=== PATIENT | female | born 1980 | race African-American/Black ===

== ENCOUNTER 2017-02-21 18:25 | Emergency (ER) | payer SELFPAY ==
[2017-02-21 18:31] VITALS: BP 129/76; PULSE 87; TEMP 98.5; BMI 25.8
--- NOTE | 2017-02-21 19:17 | PDOC ---
History of Present Illness - General Chief Complaint: Diarrhea Stated Complaint: PAIN, ACUTE Time Seen by Provider: 02/21/17 19:12 History Source: Patient Exam Limitations: No Limitations - History of Present Illness Travel History: No Initial Comments: 02/21/17 22:52 36-year-old female with no medical history presents to the emergency department complaining of constant burping/acid taste in her mouth after she burps and nonbloody/nonbilious diarrhea 2 days after having dinner at [employer]. Patient states she resides at [facility] came here on vacation. Patient denies any fever, chills, nausea/vomiting, chest pain, shortness of breath, abdominal pains, urinary symptoms or flank pains. Patient states she took one tablet of Imodium 20 minutes prior to her arrival. Patient's boyfriend ate at [employer] with her 2 days ago and has similar symptoms/diarrhea which subsided 2 hours ago. Timing/Duration: reports: intermittent Past History - Past Medical History Allergies/Adverse Reactions: Allergies Allergy/AdvReac Type Severity Reaction Status Date / Time No Known Allergies Allergy Verified 02/21/17 18:31 Home Medications: Ambulatory Orders Ciprofloxacin HCl [Cipro] 500 mg PO BID #10 tablet 02/21/17 Other medical history: denies - Reproductive History (#): 2 Para: 0 Ectopic : Yes (1) Therapeutic (s) & number: Yes (1) Spontaneous : 1 - Psycho/Social/Smoking Cessation Hx Suicidal Ideation: No Smoking History: Never smoked Hx Alcohol Use: Yes Substance Use Type: Alcohol Review of Systems - Review of Systems Able to Perform ROS?: Yes Comments:: 02/21/17 23:52 CONSTITUTIONAL: Absent: fever, chills, diaphoresis, generalized weakness, malaise, loss of appetite HEENT: Absent: rhinorrhea, nasal congestion, throat pain, throat swelling, difficulty swallowing, mouth swelling, ear pain, eye pain, visual Changes CARDIOVASCULAR: Absent: chest pain, loss of consciousness, palpitations, irregular heart rate, peripheral edema RESPIRATORY: Absent: cough, shortness of breath, dyspnea with exertion, orthopnea, wheezing, stridor, hemoptysis GASTROINTESTINAL: +diarrhea/ "burping/acid taste in mouth" Absent: abdominal pain, abdominal distension, nausea, vomiting, constipation, melena, hematochezia GENITOURINARY: Absent: dysuria, frequency, urgency, hesitancy, hematuria, flank pain, genital pain MUSCULOSKELETAL: Absent: myalgia, arthralgia, joint swelling SKIN: Absent: rash, itching, pallor HEMATOLOGIC/IMMUNOLOGIC: Absent: easy bleeding, easy bruising, lymphadenopathy, frequent infections ENDOCRINE: Absent: unexplained weight gain, unexplained weight loss, heat intolerance, cold intolerance Is the patient limited Turkish proficient: No *Physical Exam - Vital Signs Last Vital Signs Temp Pulse Resp BP Pulse Ox 98.5 F 87 18 129/76 100 02/21/17 18:29 02/21/17 18:29 02/21/17 18:29 02/21/17 18:29 02/21/17 18:29 - Physical Exam Comments: 02/21/17 23:52 GENERAL: Well developed, well nourished. Awake and alert. No acute distress. HEENT: Normocephalic, atraumatic. PERRLA, EOMI. No conjunctival pallor. Sclera are non- icteric. Moist mucous membranes. Oropharynx is clear. NECK: Supple. Full ROM. No JVD. Carotid pulses 2+ and symmetric, without bruits. No thyromegaly. No lymphadenopathy. CARDIOVASCULAR: Regular rate and rhythm. No murmurs, rubs, or gallops. Distal pulses are 2+ and symmetric. PULMONARY: No evidence of respiratory distress. Lungs clear to auscultation bilaterally. No wheezing, rales or rhonchi. ABDOMINAL: Soft. Non-tender. Non-distended. No rebound or guarding. No organomegaly. Normoactive bowel sounds. MUSCULOSKELETAL Normal range of motion at all joints. No bony deformities or tenderness. No CVA tenderness. EXTREMITIES: No cyanosis. No clubbing. No edema. No calf tenderness. SKIN: Warm and dry. Normal capillary refill. No rashes. No jaundice. NEUROLOGICAL: Alert, awake, appropriate. Cranial nerves 2-12 intact. No deficits to light touch and temperature in face, upper extremities and lower extremities. No motor deficits in the in face, upper extremities and lower extremities. Normoreflexic in the upper and lower extremities. Normal speech. Toes are down- going bilaterally. Gait is normal without ataxia. PSYCHIATRIC: Cooperative. Good eye contact. Appropriate mood and affect. ED Treatment Course - LABORATORY CBC & Chemistry Diagram: 02/21/17 19:22 02/21/17 19:22 *DC/Admit/Observation/Transfer Diagnosis at time of Disposition: Diarrhea Qualifiers: Diarrhea type: unspecified type Qualified Code(s): R19.7 - Diarrhea, unspecified GERD (gastroesophageal reflux disease) Qualifiers: Esophagitis presence: without esophagitis Qualified Code(s): K21.9 - Gastro- esophageal reflux disease without esophagitis - Discharge Dispostion Disposition: HOME Condition at time of disposition: Stable Admit: No - Prescriptions Prescriptions: Ciprofloxacin HCl [Cipro] 500 mg PO BID #10 tablet - Referrals Referrals: Braydon Luke DO [Staff Physician] - - Patient Instructions Printed Discharge Instructions: DI for Gastroesophageal Reflux Disease (GERD), Diarrhea Additional Instructions: Follow up with the sagger maker/Dr. Luke Take either: Pepcid 20mg daily twice a day or Nexium daily Increase fluids Liquid diet x12 hours with slow transition to reg diet Return to the ER for severe/persistent/worsening symptoms
[2017-02-21] MEDS ORDERED: SODIUM CHLORIDE 1,000 ML IV STA (19:18)
--- NOTE | 2017-02-21 19:38 | PDOC ---
*Physical Exam - Vital Signs Last Vital Signs Temp Pulse Resp BP Pulse Ox 98.5 F 87 18 129/76 100 02/21/17 18:29 02/21/17 18:29 02/21/17 18:29 02/21/17 18:29 02/21/17 18:29 ED Treatment Course - LABORATORY CBC & Chemistry Diagram: 02/21/17 19:22 02/21/17 19:22 Medical Decision Making - Medical Decision Making 02/21/17 19:38 36 yo F presenting to the ER s/p return from international travel (+) abdominal pain and diarrhea Pt seen by Midlevel Provider under my direct supervision Pt interviewed and examined Ancillary studies reviewed I agree with plan as outlined by Midlevel Provider 02/21/17 19:41 02/21/17 20:31 Laboratory Tests 09/03/14 02/21/17 02/21/17 09:30 19:22 19:22 WBC 4.6 6.1 D Hgb 11.7 9.4 L D Hct 34.3 29.3 L Plt Count 209 D 296 D BUN 14 Creatinine 1.5 H Total Amylase 125 H Lipase 448 H *DC/Admit/Observation/Transfer Diagnosis at time of Disposition: Diarrhea, GERD (gastroesophageal reflux disease) - Discharge Dispostion Disposition: HOME Condition at time of disposition: Stable - Prescriptions Prescriptions: Ciprofloxacin HCl [Cipro] 500 mg PO BID #10 tablet - Referrals Referrals: Braydon Luke DO [Staff Physician] - - Patient Instructions Printed Discharge Instructions: Diarrhea, DI for Gastroesophageal Reflux Disease (GERD) Additional Instructions: Follow up with the inner layer scrubber tender/Dr. Luke Take either: Pepcid 20mg daily twice a day or Nexium daily Increase fluids Liquid diet x12 hours with slow transition to reg diet Return to the ER for severe/persistent/worsening symptoms
[2017-02-21 19:50] LABS: BASOPHIL 0.5 % (0-2.0); EOSINOPHIL 3.7 % (0-4.5); MCH 25.1 pg (25.7-33.7); MCHC 31.9 g/dl (32.0-36.0); MEAN CELL VOLUME 78.6 fl (80-96); MEAN PLT VOLUME 8.3 fl (7.5-11.1); NEUTROPHILS 63.2 % (42.8-82.8); PLATELET COUNT 296 K/MM3 (134-434); RDW 16.1 % (11.6-15.6); WHITE BLOOD COUNT 6.1 K/mm3 (4.0-10.0)
[2017-02-21 20:22] LABS: ALBUMIN 3.8 g/dl (3.4-5.0); ALK PHOS 68 U/L (45-117); AMYLASE 125 U/L (25-115); ANION GAP 9 (8-16); BILIRUBIN,TOTAL 0.3 mg/dL (0.2-1.0); CALCIUM 8.8 mg/dL (8.5-10.1); CO2 24 mmol/L (21-32); CREATININE 1.5 mg/dL (0.55-1.02); GLUCOSE,RANDOM 92 mg/dL (74-106); SGOT/AST 13 U/L (15-37); SGPT/ALT 18 U/L (12-78); TOT PROT 7.9 g/dl (6.4-8.2)
[2017-02-21 20:28] LABS: URINE APPEARANCE CLEAR; URINE BILIRUBIN NEGATIVE (NEGATIVE); URINE BLOOD 2+ (NEGATIVE); URINE COLOR STRAW; URINE GLUCOSE (UA) NEGATIVE (NEGATIVE); URINE KETONE NEGATIVE (NEGATIVE); URINE LEUK ESTERASE TRACE (NEGATIVE); URINE NITRITE NEGATIVE (NEGATIVE); URINE PROTEIN NEGATIVE (NEGATIVE); URINE UROBILINOGEN NEGATIVE mg/dL (0.2-1.0)
[2017-02-21] MEDS ORDERED: MAG HYDROX/AL HYDROX/SIMETH 30 ML UNIT-DOSE CUP PO ONE (20:39)
[2017-02-21] MEDS ORDERED: FAMOTIDINE 20 MG/50 ML IVPB 50 ML IVPB ONE ×2 (20:39→20:55)
[2017-02-21 20:40] LABS: URINE MUCUS RARE; URINE RBC <1 /hpf (0-3); URINE WBC 2 /hpf (3-5)
[2017-02-21] MEDS ORDERED: MAG HYDROX/AL HYDROX/SIMETH 30 ML UNIT-DOSE CUP ONE (20:55)
[2017-02-22] MEDS ORDERED: LEVOFLOXACIN 750 MG TABLET PO SCH (10:00)
== END 2017-02-21 23:08 | disposition home or self-care (01) ==
LOC: JER 18:25
PROC: 3E0337Z Introduction of Electrolytic and Water Balance Substance into Peripheral Vein, Percutaneous Approach (ICD-10-PCS; principal; 2017-02-21)
PROC: 3E033GC Introduction of Other Therapeutic Substance into Peripheral Vein, Percutaneous Approach (ICD-10-PCS; 2017-02-21)
DX: K21.9 Gastro-esophageal reflux disease without esophagitis (principal); R19.7 Diarrhea, unspecified
CPT/HCPCS: 36415; 80053; 81003; 81015; 82150; 83690; 85025; 99282-25

== ENCOUNTER 2017-06-28 23:42 | Emergency (ER) | payer OTHER ==
[2017-06-29 00:13] VITALS: BP 138/93; PULSE 84; TEMP 98.6; BMI 25.7
--- NOTE | 2017-06-29 01:09 | PDOC ---
History of Present Illness - History of Present Illness Initial Comments: 06/29/17 01:36 The patient is a 37 year old female, with a significant past medical history of DNC (2016), heavy menstrual periods, who presents to the emergency department with vaginal bleeding for 10 days. Patient is visiting from [facility]. She states that she began experiencing cramping and heavy bleeding for 10 days. She states she has a DNC in 2016 for heavy bleeding done elsewhere. Her LMP before today was 05/15/17 which also lasted abnormally long. She states she was hospitalized for 6 days in [facility] and became anemic and received a blood transfusion. She states she has been taking Midol for the pain. She states she has gone through 10 pads today. She denies recent fevers, chills, headache or dizziness. She denies recent nausea, vomit, diarrhea or constipation. She denies recent dysuria, frequency, urgency or hematuria. She denies recent chest pain or shortness of breath. Allergies: NKA <Luciana Maldonado - Last Filed: 06/29/17 01:36> <Aruna Maher - Last Filed: 06/29/17 02:23> - General Chief Complaint: Vaginal Bleeding Stated Complaint: VAGINAL BLEEDING Time Seen by Provider: 06/29/17 00:31 Past History <Luciana Maldonado - Last Filed: 06/29/17 01:36> - Reproductive History (#): 2 Para: 0 Ectopic : Yes (1) Therapeutic (s) & number: Yes (1) Spontaneous : 1 - Suicide/Smoking/Psychosocial Hx Smoking History: Never smoked Have you smoked in the past 12 months: No Information on smoking cessation initiated: No Hx Alcohol Use: No Drug/Substance Use Hx: No Substance Use Type: Alcohol <Aruna Maher - Last Filed: 06/29/17 02:23> - Past Medical History Allergies/Adverse Reactions: Allergies Allergy/AdvReac Type Severity Reaction Status Date / Time No Known Allergies Allergy Verified 02/21/17 18:31 Home Medications: Ambulatory Orders Ciprofloxacin HCl [Cipro] 500 mg PO BID #10 tablet 02/21/17 Review of Systems - Review of Systems Comments:: 06/29/17 01:36 CONSTITUTIONAL: Absent: fever, no chills, no fatigue EYES: Absent: visual changes ENT: Absent: ear pain, no sore throat CARDIOVASCULAR: Absent: chest pain, no palpitations RESPIRATORY: Absent: cough, no SOB GI: Absent: abdominal pain, no nausea, no vomiting, no constipation, no diarrhea GENITOURINARY: Absent: dysuria, no frequency, no hematuria MARKETING INFORMATION COORDINATOR: Present: vaginal bleeding and cramping MUSCULOSKELETAL: Absent: back pain, no arthralgia, no myalgia SKIN: Absent: rash NEURO: Absent: headache <Luciana Maldonado - Last Filed: 06/29/17 01:36> *Physical Exam - Vital Signs Last Vital Signs Temp Pulse Resp BP Pulse Ox 98.6 F 84 20 138/93 98 06/29/17 00:02 06/29/17 00:02 06/29/17 00:02 06/29/17 00:02 06/29/17 00:02 - Physical Exam Comments: 06/29/17 01:38 GENERAL: Well-appearing, well-nourished. No apparent distress. HEENT: Normocephalic, atraumatic. PERRL, EOM intact. CARDIOVASCULAR: Normal S1, S2. Regular rate and rhythm. PULMONARY: Clear to auscultation bilaterally. ABDOMEN: Soft, non-distended, non-tender. EXTREMITIES: Normal ROM in all four extremities. No gross deformities. SKIN: Warm, dry. No rash NEUROLOGICAL: No focal neurological deficits. <Luciana Maldonado - Last Filed: 06/29/17 01:36> - Vital Signs Last Vital Signs Temp Pulse Resp BP Pulse Ox 98.6 F 84 20 138/93 98 06/29/17 00:02 06/29/17 00:02 06/29/17 00:02 06/29/17 00:02 06/29/17 00:02 <Aruna Maher - Last Filed: 06/29/17 02:23> ED Treatment Course - LABORATORY CBC & Chemistry Diagram: 06/29/17 01:32 <Luciana Maldonado - Last Filed: 06/29/17 01:36> - LABORATORY CBC & Chemistry Diagram: 06/29/17 01:32 <Aruna Mahre - Last Filed: 06/29/17 02:23> *DC/Admit/Observation/Transfer - Attestations Scribe Attestion: 06/29/17 01:39 Documentation prepared by Luciana Maldonado, acting as medical coding auditor for Aruna Maher MD. <Luciana Maldonado - Last Filed: 06/29/17 01:36> <Aruna Maher - Last Filed: 06/29/17 02:23> Diagnosis at time of Disposition: Menses painful - Discharge Dispostion Disposition: HOME Condition at time of disposition: Stable - Referrals Referrals: Gumaro Brooks MD [Staff Physician] - Evan Patricia MD [Staff Physician] - Grazyna Nuno DO [Staff Physician] - - Patient Instructions Printed Discharge Instructions: DI for Menorrhagia Additional Instructions: please take motrin for cramping pain Please followup with manager terminal
[2017-06-29 01:38] LABS: BASO % 1.4 % (0-2.0); EOS % 3.5 % (0-4.5); HEMATOCRIT 30.7 % (32.4-45.2); HEMOGLOBIN 9.9 GM/dL (10.7-15.3); LYMPH % 38.1 % (8-40); MCH 29.5 pg (25.7-33.7); MCHC 32.4 g/dl (32.0-36.0); MEAN PLT VOLUME 8.4 fl (7.5-11.1); MONO % 4.9 % (3.8-10.2); NEUT % 52.1 % (42.8-82.8); PLATELET COUNT 240 K/MM3 (134-434); RBC 3.37 M/mm3 (3.60-5.2); RDW 14.4 % (11.6-15.6); WHITE BLOOD COUNT 5.9 K/mm3 (4.0-10.0)
[2017-06-29] MEDS ORDERED: IBUPROFEN 600 MG TABLET (FP) PO ONE ×2 (01:53→02:39)
== END 2017-06-29 02:41 | disposition home or self-care (01) ==
LOC: JER 23:42
DX: N92.0 Excessive and frequent menstruation with regular cycle (principal); N94.6 Dysmenorrhea, unspecified
CPT/HCPCS: 36415; 84703; 85025; 86850; 86900; 86901; 99281-25

== ENCOUNTER 2017-06-30 13:13 | Day surgery (SDC) | payer OTHER ==
[2017-06-30 13:18] VITALS: BMI 26.8
--- NOTE | 2017-06-30 13:22 | PDOC ---
History of Present Illness <Emliie Lieberman - Last Filed: 06/30/17 16:19> - General History Source: Patient Exam Limitations: No Limitations - History of Present Illness Initial Comments: 06/30/17 17:55 Patient is a 37 year old female with a significant past medical history of DNC ( 2016), Fibroids, heavy menstrual periods who presents to the ED from OB office with complaints of heavy vaginal bleeding. Patient reports experiencing heavy vaginal bleeding for the last 10 days. She reports coming into the [place] ED yesterday for the same complaint and was discharged to follow up with ADJUNCT TRAINER. Patient was advised by Dr. Israel to come into the ED for admission to the OR for heavy vaginal bleeding. Patient currently has no other complaints while in the ED. Denies Chest pain, SOB. Denies nausea, vomiting. Denies fevers, chills. Denies contact with sick individuals, out of state travelling. Denies any other symptoms. Allergies: None Social history: No smoking. No alcohol. No illicit drugs. Surgical history: None PMD: None <Akshat Colindres - Last Filed: 06/30/17 17:56> - General Chief Complaint: Vaginal Bleeding Stated Complaint: VAGINAL BLEEDING Time Seen by Provider: 06/30/17 13:22 Past History - Past Medical History COPD: No - Reproductive History (#): 2 Para: 0 Ectopic : Yes (1) Therapeutic (s) & number: Yes (1) Spontaneous : 1 - Suicide/Smoking/Psychosocial Hx Smoking History: Never smoked Have you smoked in the past 12 months: No Information on smoking cessation initiated: No Hx Alcohol Use: No Drug/Substance Use Hx: No Substance Use Type: Alcohol <Emilie Lieberman - Last Filed: 06/30/17 16:19> <Akshat Colindres - Last Filed: 06/30/17 17:56> - Past Medical History Allergies/Adverse Reactions: Allergies Allergy/AdvReac Type Severity Reaction Status Date / Time No Known Allergies Allergy Verified 06/30/17 13:18 Home Medications: Ambulatory Orders NK [No Known Home Medication] 06/30/17 Review of Systems - Review of Systems Able to Perform ROS?: Yes Comments:: 06/30/17 17:55 GENERAL/CONSTITUTIONAL: No fever or chills. No weakness. HEAD, EYES, EARS, NOSE AND THROAT: No change in vision. No ear pain or discharge. No sore throat. GASTROINTESTINAL: No nausea, vomiting, diarrhea or constipation. GENITOURINARY: +Vagiinal bleeding No dysuria, frequency, or change in urination. CARDIOVASCULAR: No chest pain or shortness of breath. RESPIRATORY: No cough, wheezing, or hemoptysis. MUSCULOSKELETAL: No joint or muscle swelling or pain. No neck or back pain. SKIN: No rash NEUROLOGIC: No headache, vertigo, loss of consciousness, or change in strength/ sensation. ENDOCRINE: No increased thirst. No abnormal weight change. HEMATOLOGIC/LYMPHATIC: No anemia, easy bleeding, or history of blood clots. ALLERGIC/IMMUNOLOGIC: No hives or skin allergy. All Other Systems: Reviewed and Negative <Akshat Colindres - Last Filed: 06/30/17 17:56> *Physical Exam - Vital Signs Last Vital Signs Temp Pulse Resp BP Pulse Ox 99.8 F H 96 H 18 157/81 100 06/30/17 13:15 06/30/17 13:15 06/30/17 13:15 06/30/17 13:15 06/30/17 13:15 <Emilie Lieberman - Last Filed: 06/30/17 16:19> - Vital Signs Last Vital Signs Temp Pulse Resp BP Pulse Ox 98.4 F 69 16 113/69 98 06/30/17 16:16 06/30/17 16:16 06/30/17 16:16 06/30/17 16:16 06/30/17 16:16 - Physical Exam Comments: 06/30/17 17:55 GENERAL: Awake, alert, and fully oriented, in no acute distress HEAD: No signs of trauma EYES: PERRLA, EOMI, sclera anicteric, conjunctiva clear ENT: Auricles normal inspection, hearing grossly normal, nares patent, oropharynx clear without exudates. Moist mucosa NECK: Normal ROM, supple, no lymphadenopathy, JVD, or masses LUNGS: Breath sounds equal, clear to auscultation bilaterally. No wheezes, and no crackles HEART: Regular rate and rhythm, normal S1 and S2, no murmurs, rubs or gallops ABDOMEN: Soft, nontender, normoactive bowel sounds. No guarding, no rebound. No masses EXTREMITIES: Normal range of motion, no edema. No clubbing or cyanosis. No cords , erythema, or tenderness ADJUNCT TRAINER: no active vaginal bleeding, deferred bimanual/speculum exam as pt is going to OR NEUROLOGICAL: Normal speech, cranial nerves intact, negative pronator drift, 5/ 5 strength in all 4 extremities, normal sensation to light touch in all 4 extremities, normal cerebellar exam, normal gait, normal reflexes and tone SKIN: Warm, Dry, normal turgor, no rashes or lesions noted. <Akshat Colindres - Last Filed: 06/30/17 17:56> ED Treatment Course - LABORATORY CBC & Chemistry Diagram: 06/30/17 13:55 06/30/17 13:55 <Emilie Lieberman - Last Filed: 06/30/17 16:19> - LABORATORY CBC & Chemistry Diagram: 06/30/17 13:55 06/30/17 13:55 - ADDITIONAL ORDERS Additional order review: Laboratory Results 06/30/17 06/30/17 06/30/17 13:55 13:55 13:55 PTT (Actin FS) 25.8 L Sodium 143 Potassium 4.3 Chloride 113 H Carbon Dioxide 19 L D Anion Gap 11 BUN 15 Creatinine 1.1 H D Creat Clearance w eGFR 55.30 Random Glucose 86 Calcium 8.7 Total Bilirubin 0.2 D AST 15 ALT 16 Alkaline Phosphatase 56 Total Protein 7.0 Albumin 3.5 Beta HCG, Quant < 1.0 Urine Color Yellow Urine Appearance Cloudy Urine pH 5.0 Ur Specific Vest 1.016 Urine Protein 1+ H Urine Glucose (UA) Negative Urine Ketones Trace H Urine Blood 3+ H Urine Nitrite Positive Urine Bilirubin Negative Urine Urobilinogen Negative Ur Leukocyte Esterase 3+ H Urine WBC (Auto) 358 Urine RBC (Auto) 753 Ur Epithelial Cells Rare Urine Bacteria Many Urine Mucus Rare Urine HCG, Qual Blood Type 06/30/17 06/30/17 13:55 13:34 PTT (Actin FS) Sodium Potassium Chloride Carbon Dioxide Anion Gap BUN Creatinine Creat Clearance w eGFR Random Glucose Calcium Total Bilirubin AST ALT Alkaline Phosphatase Total Protein Albumin Beta HCG, Quant Urine Color Urine Appearance Urine pH Ur Specific Vest Urine Protein Urine Glucose (UA) Urine Ketones Urine Blood Urine Nitrite Urine Bilirubin Urine Urobilinogen Ur Leukocyte Esterase Urine WBC (Auto) Urine RBC (Auto) Ur Epithelial Cells Urine Bacteria Urine Mucus Urine HCG, Qual Negative Blood Type O POSITIVE 06/30/17 13:55 RBC 2.85 L MCV 91.8 MCHC 31.8 L RDW 14.6 MPV 8.5 Neutrophils % 67.1 D Lymphocytes % 25.8 D Monocytes % 3.8 Eosinophils % 2.3 Basophils % 1.0 - Medications Given in the ED: ED Medications Discontinued Medications Generic Name Dose Route Start Last Admin Trade Name Mario PRN Reason Stop Dose Admin Sodium Chloride 1,000 ml 06/30/17 13:38 06/30/17 14:08 Normal Saline - IV 06/30/17 13:39 1,000 ml ONCE ONE Administration <Akshat Colindres - Last Filed: 06/30/17 17:56> Medical Decision Making - Medical Decision Making 06/30/17 14:19 37-year-old female with a history of fibroids and DNC presents with heavy vaginal bleeding and is sent in for admission for dilation and curettage by OB. Will obtain preop labs and an ultrasound and admit the patient to Dr. Israel <Emilie Lieberman - Last Filed: 06/30/17 16:19> *DC/Admit/Observation/Transfer - Discharge Dispostion Admit: Yes - Attestations Physician Attestion: 06/30/17 16:21 I, Dr. Emilie Lieberman MD, attest that this document has been prepared under my direction and personally reviewed by me in its entirety. I further attest, that it accurately reflects all work, treatment, procedures and medical decision -making performed by me. <Emilie Lieberman - Last Filed: 06/30/17 16:19> - Attestations Scribe Attestion: 06/30/17 17:56 Documentation prepared by Akshat Colindres, acting as manager of medical for Emilie Lieberman MD, /DO. <Akshat Colindres - Last Filed: 06/30/17 17:56> Diagnosis at time of Disposition: Menorrhagia, Fibroid - Discharge Dispostion Condition at time of disposition: Stable
[2017-06-30] MEDS ORDERED: SODIUM CHLORIDE 0.9% 500 ML INFUS.BAG IV ONE (13:38)
[2017-06-30 14:22] LABS: EOS % 2.3 % (0-4.5); HEMATOCRIT 26.2 % (32.4-45.2); HEMOGLOBIN 8.3 GM/dL (10.7-15.3); LYMPH % 25.8 % (8-40); MCH 29.2 pg (25.7-33.7); MCHC 31.8 g/dl (32.0-36.0); MEAN CELL VOLUME 91.8 fl (80-96); MEAN PLT VOLUME 8.5 fl (7.5-11.1); MONO % 3.8 % (3.8-10.2); NEUT % 67.1 % (42.8-82.8); PLATELET COUNT 233 K/MM3 (134-434); RBC 2.85 M/mm3 (3.60-5.2); RDW 14.6 % (11.6-15.6); WHITE BLOOD COUNT 6.9 K/mm3 (4.0-10.0)
[2017-06-30 14:34] LABS: ALBUMIN 3.5 g/dl (3.4-5.0); ANION GAP 11 (8-16); BILIRUBIN,TOTAL 0.2 mg/dL (0.2-1.0); BLOOD UREA NITROGEN 15 mg/dL (7-18); CALCIUM 8.7 mg/dL (8.5-10.1); CHLORIDE 113 mmol/L (98-107); CO2 19 mmol/L (21-32); CREATININE 1.1 mg/dL (0.55-1.02); GLUCOSE,RANDOM 86 mg/dL (74-106); SGPT/ALT 16 U/L (12-78); SODIUM 143 mmol/L (136-145)
[2017-06-30 14:36] LABS: ALK PHOS 56 U/L (45-117)
[2017-06-30 14:38] LABS: POTASSIUM 4.3 mmol/L (3.5-5.1); SGOT/AST 15 U/L (15-37)
--- NOTE | 2017-06-30 14:38 | EKG ---
Test Reason : Blood Pressure : / mmHG Vent. Rate : 074 BPM Atrial Rate : 074 BPM P-R Int : 172 ms QRS Dur : 070 ms QT Int : 382 ms P-R-T Axes : 049 027 019 degrees QTc Int : 424 ms NORMAL SINUS RHYTHM NORMAL ECG NO PREVIOUS ECGS AVAILABLE Confirmed by Clyde Jones MD ([id number]) on 06/30/2017 2:38:03 PM Referred By: Confirmed By:Clyde Jones MD
[2017-06-30 14:41] LABS: URINE APPEARANCE CLOUDY; URINE BILIRUBIN NEGATIVE (NEGATIVE); URINE BLOOD 3+ (NEGATIVE); URINE COLOR YELLOW; URINE GLUCOSE (UA) NEGATIVE (NEGATIVE); URINE KETONE TRACE (NEGATIVE); URINE NITRITE POSITIVE (NEGATIVE); URINE UROBILINOGEN NEGATIVE mg/dL (0.2-1.0)
[2017-06-30 14:42] LABS: URINE LEUK ESTERASE 3+ (NEGATIVE); URINE PROTEIN 1+ (NEGATIVE)
[2017-06-30 14:52] LABS: EPI CELLS RARE /HPF (FEW); URINE BACTERIA MANY /hpf (NONE SEEN); URINE MUCUS RARE
[2017-06-30] MEDS ORDERED: MIDAZOLAM HCL 2 MG/2 ML SINGLE DOSE VIAL ONE (16:14)
[2017-06-30] MEDS ORDERED: PROPOFOL 20 ML ONE (16:15)
--- NOTE | 2017-06-30 17:33 | HP ---
Past Medical History - Primary Care Physician PCP:: Gracie Israel - Admission Chief Complaint: 37 yrs , 3ctopic 1 , c/o heavy vaginal bleeding accompanied by pain for 9-12days , admitted for emergency D&C History of Present Illness: pt us admitted from ER today songram was done today in ER reported as Leiomyoma uterus, multiple fibroid, fundal fibriid 1x2 cm, posterior fibroid in Lower uterine segment 3x2x5 cm approx with submucous extension, another post fibroid about 4 cm . patient also was seen in the Clinic in AM , bleeding profusely & c/o pain scale 10/10 she was in ER on 06/28/17 pregn test neg, h/9.9/30.7, plt 240 . pt states [place] country [place] she had heavy bleeding, she was severely anemic , she receieved 2 units of pack cells . she was told she has fibroids she has been bleeding heavy for past 4-5 months during period x10-12 days bleeding , changes 11 pads per day . before 4 months 28/30 day cycle, bleeding foe 4-5 days , changed 3-4 pads / day . No h/o contraception Last Pap in [facility] , in 2016 normal as per pt . no h/o abn pap she denies h/o STD contraception none History Source: Patient - Past Medical History MEDICAL BILLING SPECIALIST: Yes: Syncope. No: Migraine, Seizure Cardiovascular: Yes: HTN (h/o labile htn, she [place] meds [place] country, did not take the meds all the time . presently no meds). No: Murmur Pulmonary: No: Asthma Gastrointestinal: No: Constipation, GERD, GI Bleed Hepatobiliary: No: Cirrhosis Renal/: No: UTI Reproductive: Yes: Ectopic (2004, Left salpingectomy in her country [facility]). No: PID ...: 2 ...Para: 0 ...Spon : 1 (05/2016 1st trimester d&C done ) ...LMP: 06/19/17 Heme/Onc: Yes: Anemia (h/o pack cell transfusion in in [facility]) Infectious Disease: Yes: Other (declines) Psych: Yes: Other (declines) Musculoskeletal: Yes: Other (declines) Rheumatology: Yes: Other (declines) Endocrine: Yes: Other (declines) Dermatology: Yes: Other (none) - Past Surgical History Hx Myomectomy: No Hx Transabdominal Cerclage: No Additional Surgical History: 2005 EXPl Lap , Left salpingectomy for ectopic pregn in [facility]. 05/2016 D&C for sp ab in [facility] - Smoking History Smoking history: Never smoked Have you smoked in the past 12 months: No - Alcohol/Substance Use Hx Alcohol Use: No History of Substance Use: reports: None Home Medications - Allergies Allergies/Adverse Reactions: Allergies Allergy/AdvReac Type Severity Reaction Status Date / Time No Known Allergies Allergy Verified 06/30/17 13:18 - Home Medications Home Medications: Ambulatory Orders NK [No Known Home Medication] 06/30/17 Home Medications (free text): iron pills from [place] country Family Disease History - Family Disease History Family Disease History: CA: Mother ( of ovarian cancer ) Physical Exam-[employer] Vital Signs: Vital Signs Temperature 98.4 F 06/30/17 16:16 Pulse Rate 69 06/30/17 16:16 Respiratory Rate 16 06/30/17 16:16 Blood Pressure 113/69 06/30/17 16:16 O2 Sat by Pulse Oximetry (%) 98 06/30/17 16:16 Constitutional: Yes: Severe Distress, Pallor Eyes: Yes: WNL HENT: Yes: WNL Neck: Yes: WNL Cardiovascular: Yes: WNL Respiratory: Yes: WNL Gastrointestinal: Yes: WNL Renal/: Yes: WNL Pelvis: Yes: WNL External Genitalia: Yes: Normal Internal Exam Deferred: Yes Vaginal Exam: Yes: Bleeding (profuse with clots) Cervix: Yes: Bleeding. No: Polyp Uterus: Yes: Freely Moveable, Anteverted, Enlarged (irregular shape 8-10 weeks size), Firm. No: Tender Adnexa: Normal: Bilateral, Not Palpable: Bilateral Breast(s): Yes: WNL Musculoskeletal: Yes: WNL Extremities: Yes: WNL. No: Calf Tenderness Edema: No Integumentary: Yes: Incision (subumblical midline scar of ectopic pregn) ...Motor Strength: WNL Psychiatric: Yes: WNL, Alert Labs: CBC, BMP 06/30/17 13:55 06/30/17 13:55 Laboratory Tests 06/30/17 13:34 Blood Type O POSITIVE Antibody Screen Pending Imaging - Results Ultrasound: Report Reviewed EKG: Report Reviewed Problem List - Problem (1) Menometrorrhagia Code(s): N92.1 - EXCESSIVE AND FREQUENT MENSTRUATION WITH IRREGULAR CYCLE (2) Fibroid uterus Code(s): D25.9 - LEIOMYOMA OF UTERUS, UNSPECIFIED Qualifiers: Uterine leiomyoma location: intramural and submucous Qualified Code(s): D25.1 - Intramural leiomyoma of uterus; D25.0 - Submucous leiomyoma of uterus; D25.0 - Submucous leiomyoma of uterus (3) Anemia Code(s): D64.9 - ANEMIA, UNSPECIFIED Qualifiers: Iron deficiency anemia type: chronic blood loss Assessment/Plan 37 yrs ectopic pregn x1 , menometrorrhagia , fibroid uterus, intramural & submucous fibroid confirmed with sono , severe anemia Plan : D&C Hysteroscopy
[2017-06-30] MEDS ORDERED: DEXAMETHASONE SOD PHOSPHATE 4 MG/1 ML VIAL ONE (17:34)
[2017-06-30] MEDS ORDERED: ceFAZolin SODIUM 1 GM VIAL ONE (17:40)
[2017-06-30] MEDS ORDERED: ceFAZolin SODIUM 1 GM VIAL IVPB ONE (17:40)
[2017-06-30] MEDS ORDERED: ONDANSETRON 4 MG/2 ML VIAL IVPUSH PRN (18:15)
[2017-06-30] MEDS ORDERED: oxyCODONE HCL 5 MG TABLET PO PRN (18:15)
[2017-06-30] MEDS ORDERED: LACTATED RINGERS SOLUTION 1,000 ML IV SCH (18:15)
[2017-06-30] MEDS ORDERED: KETOROLAC TROMETHAMINE 30 MG/1 ML VIAL ONE (18:18)
[2017-06-30] MEDS ORDERED: KETOROLAC TROMETHAMINE 30 MG/1 ML VIAL IVPUSH ONE (18:30)
[2017-06-30] MEDS ORDERED: IBUPROFEN 400 MG TABLET (FP) PO PRN (18:31)
[2017-06-30] MEDS ORDERED: ACETAMINOPHEN 325 MG TABLET (FP) PO PRN (18:31)
--- NOTE | 2017-06-30 18:51 | OP ---
Operative Note - Note: Operative Date: 06/30/17 Pre-Operative Diagnosis: menometrorrhagia , fibroid uterus Operation: Hysteroscopy, D&C Findings: ut av irregular 12 weeks size uterocervical length 9 cm endocervical fibroid & ower segment posteriorly obstruction encountered, no distict margins fibroid could be evaluated body of uterus fleshy em seen both ostia visualised Post-Operative Diagnosis: Other (submucous fibroid) Surgeon: Gracie Israel Anesthesiologist/[employer] OPERATOR: Yeyo Justin Anesthesia: General Specimens Removed: ecc. emc Estimated Blood Loss (mls): 50 Fluid Volume Replaced (mls): 400 (iv ancef 1 gm given ) Operative Report Dictated: Yes
[2017-06-30] MEDS ORDERED: IBUPROFEN 400 MG TABLET (FP) PO ONE ×2 (19:02→19:04)
[2017-06-30 19:19] VITALS: TEMP 98.5
[2017-06-30 19:46] LABS: INR 1.07 (0.82-1.09); PROTHROMBIN TIME (PATIENT) 12.1 SEC (9.98-11.88)
[2017-06-30 20:20] VITALS: BP 130/79; PULSE 80
--- NOTE | 2017-07-01 12:05 | OP ---
DATE OF OPERATION: 06/30/2017 PREOPERATIVE DIAGNOSES: Menometrorrhagia, fibroid uterus, severe anemia. OPERATION: Hysteroscopy, dilatation and curettage. POSTOPERATIVE DIAGNOSES: Menometrorrhagia, fibroid uterus, severe anemia, and a submucous fibroid. FINDINGS: This is a 37-year-old, 2, para 0-0-1-0, ectopic. She has a history of LMP on June 19, 2017, is here for vaginal bleeding continuously for 12 days, at times very heavy and hemoglobin today of 8.3. Sonogram shows multiple fibroids, posterior fibroid 5 x 4 cm, intramural, encroaching the endometrial cavity and another posterior fibroid, another fundal fibroid. DESCRIPTION OF PROCEDURE: Patient is taken to the operating room table, and general anesthesia was given. Lithotomy position was given. pubis, perineum, vagina were painted with Betadine, draped in usual manner. Pelvic examination was done. Uterus was anteverted, 12 weeks' size, irregular, mobile, and then, adnexa were not palpable. Weighted speculum was put. Anterior lip of the cervix was held with a single-tooth tenaculum, and cervix was dilated with a 5-mm dilator. Then, diagnostic hysteroscope was introduced. There was an endocervical posterior. Small fibroid was noted, and then hysteroscope was advanced .. In the posterior lower segment, obstruction was encountered but no defining limitations could be seen of the fibroid, and then, the body of the uterus and both ostia were visualized. The fleshy endometrium was noted. Hysteroscope was removed, and an ECC was done. Then, curettage of the endometrial cavity was done. Patient tolerated procedure well , and estimated blood loss was 50 mL. She received IV Ancef 1 g prior to starting the procedure, and she was transferred to the recovery room in stable condition. Amairani [id number] MTDD
--- NOTE | 2017-07-02 12:42 | PATH ---
Surgical Pathology Report Patient Name: YARA RANDALL [facility]. Rec. #: [id number] /Age/Gender: 1980 (Age: 37) / F Account: [id number] Location: AMBULATORY SURG Taken: 06/30/2017 Received: 07/01/2017 Reported: 07/02/2017 Physicians: Gracie Israel M.D. Specimen(s) Received A: ENDOCERVICAL CURETTINGS B: ENDOCERVICAL CURETTINGS Clinical History Preoperative diagnosis: Vaginal bleeding Final Diagnosis A. ENDOCERVIX, CURETTING: BENIGN ENDOCERVICAL TISSUE WITH ACUTE INFLAMMATION. B. ENDOMETRIUM, CURETTING: ENDOMETRIUM WITH STROMAL AND GLANDULAR BREAKDOWN, AND AREAS SUGGESTIVE OF BENIGN ENDOMETRIAL POLYP. NO ENDOMETRIAL HYPERPLASIA OR CARCINOMA IDENTIFIED. Electronically Signed Tolu Rios M.D. Gross Description A. Received in formalin labeled "endocervical curettings," is a 1.0 x 0.5 x 0.2 cm aggregate of huertas-brown soft tissue fragments. The formalin is filtered and the specimen is entirely submitted in one cassette. B. Received in formalin labeled "endometrial curettings," is a 4.0 x 3.5 x 0.3 cm aggregate of huertas-brown soft tissue fragments admixed with blood clot. The formalin is filtered and the specimen is entirely submitted in 3 cassettes. /07/01/2017 saudi07/01/2017
== END 2017-06-30 20:21 | disposition home or self-care (01) ==
LOC: JER 13:13 → JASUSAT 16:21
PROVIDERS: ATTEND Obstetrics & Gynecology
PROC: 0UDB8ZX Extraction of Endometrium, Via Natural or Artificial Opening Endoscopic, Diagnostic (ICD-10-PCS; principal; 2017-06-30 16:29)
DX: N92.1 Excessive and frequent menstruation with irregular cycle (principal); D25.0 Submucous leiomyoma of uterus; D64.9 Anemia, unspecified
CPT/HCPCS: 36415; 76830-TC; 80053; 81003; 81015; 84702; 84703; 85025; 85610; 85730; 86850; 86870; 86900; 86901; 86902; 87086; 87186; 88305-TC; 93005; 93010; 94760; 99284-25